=== PATIENT | female | born 2000 | race African-American/Black ===

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

== ENCOUNTER 2022-10-28 23:00 | Emergency (ER) | payer OTHER ==
[2022-10-28] MEDS ORDERED: methylPREDNISolone NA SUCC 125 MG/2 ML VIAL ONE (23:15)
[2022-10-28] MEDS ORDERED: FAMOTIDINE 20 MG/50 ML IVPB 20 MG/50 ML MG IVPB ONE ×2 (23:16→23:27)
[2022-10-28 23:17] VITALS: TEMP 97.8; BMI 25.0
[2022-10-28] MEDS ORDERED: EPINEPHrine/PF 1 MG/1 ML (1:1,000) AMPULE ONE (23:19)
[2022-10-28] MEDS ORDERED: SODIUM CHLORIDE 0.9% 1000 ML INFUS.BAG IV ONE (23:27)
[2022-10-28] MEDS ORDERED: methylPREDNISolone NA SUCC 125 MG/2 ML VIAL IVPB ONE (23:27)
[2022-10-28] MEDS ORDERED: EPINEPHrine 1:1,000 0.3 MG/0.3 ML SYR IM ONE (23:28)
[2022-10-29 00:15] VITALS: PULSE 81; RESP 16
[2022-10-29] MEDS ORDERED: LACTATED RINGERS SOLUTION 1000 ML INFUS.BAG IV ONE (00:40)
[2022-10-29 04:59] VITALS: BP 103/65
== END 2022-10-29 05:17 | disposition home or self-care (01) ==
LOC: JER 23:00
PROC: 3E023GC Introduction of Other Therapeutic Substance into Muscle, Percutaneous Approach (ICD-10-PCS; principal; 2022-10-28)
PROC: 3E033GC Introduction of Other Therapeutic Substance into Peripheral Vein, Percutaneous Approach (ICD-10-PCS; 2022-10-28)
DX: T78.2XXA Anaphylactic shock, unspecified, initial encounter (principal)
CPT/HCPCS: 93005; 93010; 99291; J0171